=== PATIENT | female | born 1960 | race Native Hawaiian/Other Pacific Islander ===

== ENCOUNTER 2016-09-01 19:31 | Emergency (ER) | payer BC ==
[~2016-09-01] VITALS: Ht 167.6 cm; Wt 79.4 kg
[2016-09-02] MEDS: TDAP DIPH,PERTUSS,TET VAC/PF 0.5 ML DISP.SYRIN IM ONE (00:40)
[2016-09-02] MEDS ORDERED: TDAP DIPH,PERTUSS,TET VAC/PF 0.5 ML DISP.SYRIN IM ONE (00:43)
[2016-09-02] MEDS: DOXYCYCLINE HYCLATE 100 MG TABLET PO ONE (00:49)
[2016-09-02 00:51] VITALS: BP 128/74
[2016-09-02] MEDS ORDERED: DOXYCYCLINE HYCLATE 100 MG TABLET ONE (00:54)
--- NOTE | 2016-09-02 01:27 | NUR ---
Patient discharged to home in stable conditon. Written and verbal after care instructions given. Patient verbalizes understanding of instructions.
== END 2016-09-02 01:27 | disposition home or self-care (01) ==
LOC: ER 19:33
DX: S71.151A Open bite, right thigh, initial encounter (principal); Z88.0 Allergy status to penicillin; W54.0XXA Bitten by dog, initial encounter; Y93.89 Activity, other specified; Y92.9 Unspecified place or not applicable; Y99.9 Unspecified external cause status
CPT/HCPCS: 90715; A4217; A4663